=== PATIENT | female | born 1940 | race Caucasian/White ===

== ENCOUNTER → 2016-06-15 | Outpatient (CLI) | payer MEDICARE, BC ==
[~2016-06-15] MED LIST: AMLO5TAB PO; ASPI-558 PO; CALC600T86 PO; FURO-33 PO; LABE100T PO; METF-200 PO; MULT-795 PO; OMEP20TA24 PO; POTA20TA68 PO; SIMV20TA89 PO; TERB12CR3 TOP; [UNRECOGNIZED DRUG - CODE]
== END ==
LOC: WC.BC 14:19
DX: Z12.31 Encounter for screening mammogram for malignant neoplasm of breast (principal)
CPT/HCPCS: 77063; G0202